=== PATIENT | male | born 1970 | race Caucasian/White ===

== ENCOUNTER 2024-07-21 17:47 | Emergency (ER) | payer OTHER, SELFPAY ==
[2024-07-21 17:56] VITALS: BP 116/72; PULSE 80; RESP 16; TEMP 36.7; O2SAT 98
[2024-07-21 18:35] VITALS: BP 122/69; PULSE 82; RESP 14; O2SAT 96
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
== END 2024-07-21 18:36 | disposition home or self-care (01) ==
PROVIDERS: Emergency Provider Physician Assistant; PCP Electrodiagnostic Medicine
DX: Z04.1 Encounter for examination and observation following transport accident (principal)
CPT/HCPCS: 99281

== ENCOUNTER 2024-07-27 10:59 | Outpatient (CLI) | payer OTHER, SELFPAY | END 2024-07-27 11:00 | disposition home or self-care (01) | LOC: SLEEP 11:00 | PROVIDERS: Family Provider Electrodiagnostic Medicine; Visit Provider Electrodiagnostic Medicine | DX: G47.33 Obstructive sleep apnea (adult) (pediatric) (principal); G47.36 Sleep related hypoventilation in conditions classified elsewhere | CPT/HCPCS: G0399 ==